=== PATIENT | male | born 1970 | race Caucasian/White ===

== ENCOUNTER 2016-06-01 18:16 | Emergency (ER) | payer BC ==
[2016-06-01] MEDS ORDERED: Amoxicillin/Clavulanate TAB* 875 MG PO ONE (21:35)
[2016-06-01] MEDS ORDERED: traMADol TAB* 50 MG PO ONE (21:36)
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
[2016-06-01 22:07] VITALS: BP 170/110
== END 2016-06-01 22:00 | disposition home or self-care (01) ==
LOC: UCEAST 18:16
DX: K04.7 Periapical abscess without sinus (principal); I10 Essential (primary) hypertension; F17.210 Nicotine dependence, cigarettes, uncomplicated; Z71.6 Tobacco abuse counseling
CPT/HCPCS: 99212; A9270-GY; G0463

== ENCOUNTER 2016-07-05 06:52 | Emergency (ER) | payer BC ==
[2016-07-05 07:51] VITALS: BP 144/98
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
== END 2016-07-05 07:51 | disposition home or self-care (01) ==
LOC: ED 06:52
DX: K02.9 Dental caries, unspecified (principal); R51 Headache; F17.210 Nicotine dependence, cigarettes, uncomplicated
CPT/HCPCS: 99282

== ENCOUNTER 2016-09-28 16:21 | Emergency (ER) | payer BC ==
[2016-09-28 16:40] VITALS: BP 144/103
[2016-09-28] MEDS ORDERED: Penicillin VK 500 MG TAB(NF) PO ONE (17:40)
--- NOTE | 2016-09-28 17:44 | UC ---
Navneet Borwn Alok, scribed for Josef Cho MD on 09/28/16 at 1743 . Dental HPI - HPI Summary HPI Summary: 46M presents to the [facility] for left upper dental pain/swelling. Pt states that he has an appointment in one month for his tooth decay but states that he may have aggravated his teeth while wrestling with his granddaughter earlier today. - History of Current Complaint Chief Complaint: UCDentalProblem Stated Complaint: TOOTH PAIN Time Seen by Provider: 09/28/16 17:34 Hx Obtained From: Patient Onset/Duration: Lasting Hours, Still Present Pain Intensity: 8 Pain Scale Used: 0-10 Numeric Aggravating: Nothing Alleviating: Nothing - Allergies/Home Medications Allergies/Adverse Reactions: Allergies Allergy/AdvReac Type Severity Reaction Status Date / Time No Known Allergies Allergy Verified 07/05/16 06:57 PMH/Surg Hx/FS Hx/Imm Hx - Surgical History Surgical History: None - Family History Known Family History: Negative: Hypertension - Social History Occupation: Employed Full-time Lives: With Family Alcohol Use: None Substance Use Type: None Smoking Status (MU): Heavy Every Day Tobacco Smoker Amount Used/How Often: 1/2 PPD Review of Systems Constitutional: Negative ENT: Dental Pain All Other Systems Reviewed And Are Negative: Yes Physical Exam Triage Information Reviewed: Yes Appearance: Well-Appearing, No Pain Distress Vital Signs: Initial Vital Signs Temp 98 F 09/28/16 16:38 Pulse 121 09/28/16 16:38 Resp 20 09/28/16 16:38 BP 144/103 09/28/16 16:38 Pulse Ox 100 09/28/16 16:38 Vital Signs Reviewed: Yes Eyes: Positive: Other: - EOMI, BRYAN ENT: Positive: Normal ENT inspection Dental: Positive: Other: - Extensive teeth decay. Left upper gingiva swollen. Swollen cheek. Neck: Positive: Supple, Nontender Respiratory: Positive: Lungs clear, Normal breath sounds Cardiovascular: Positive: RRR Abdomen Description: Positive: Nontender, Soft Bowel Sounds: Positive: Present Musculoskeletal Exam: Normal Musculoskeletal: Positive: Strength Intact, ROM Intact Neurological: Positive: Alert, Other: - Sensory/Motor intact Psychological: Positive: Other: - affect/mood appropriate Skin: Positive: Other - warm, dry, skin color reflects adequate perfusion Dental Complaint Course/Dx - Course Course Of Treatment: Patient medications reviewed this visit. RX PEN VK AND NORCO, F/U WITH DENTIST. - Differential Dx/Diagnosis Provider Diagnoses: DENTAL ABSCESS Discharge - Discharge Plan Condition: Stable Disposition: HOME Prescriptions: HYDROcodone/ACETAMIN 5-325 MG* [[place] 5-325 TAB*] 1 tab PO Q4H PRN #15 tab MDD 6 PRN Reason: Pain Penicillin VK 500 MG TAB(NF) [Penicillin VK 500 mg Tab] 500 mg PO QID #40 tab MDD 4 Patient Education Materials: Dental Abscess (ED) Referrals: No Primary Care Phys,NOPCP [Primary Care Provider] - Additional Instructions: FOLLOW UP WITH YOUR DENTIST. GET RECHECKED FOR ANY WORSENING OF YOUR CONDITION OR QUESTIONS OR CONCERNS. The documentation as recorded by the Navneet david Alok accurately reflects the service I personally performed and the decisions made by me, Josef Cho MD.
[2016-09-28] MEDS ORDERED: Penicillin VK LIQ* 250 MG/5 ML BTL PO ONE (17:48)
[2016-09-28] MEDS ORDERED: Penicillin VK TAB* 250 MG PO ONE (17:52)
== END 2016-09-28 18:01 | disposition home or self-care (01) ==
LOC: UCEAST 16:21
DX: K04.7 Periapical abscess without sinus (principal); Z72.0 Tobacco use
CPT/HCPCS: 99212; A9270-GY; G0463

== ENCOUNTER 2016-12-30 19:35 | Emergency (ER) | payer BC ==
[2016-12-30 19:52] VITALS: BP 154/83
--- NOTE | 2016-12-30 19:52 | UC ---
UC Dental HPI - HPI Summary HPI Summary: 46 YEAR OLD MALE PRESENTS WITH COMPLAINS OF RIGHT LOWER DENTAL JAW ABSCESS. - History of Current Complaint Chief Complaint: UCDentalProblem Stated Complaint: TOOTH PAIN Time Seen by Provider: 12/30/16 19:52 Hx Obtained From: Patient Onset/Duration: Sudden Onset Severity: Moderate Pain Scale Used: 0-10 Numeric - 5 - Allergies/Home Medications Allergies/Adverse Reactions: Allergies Allergy/AdvReac Type Severity Reaction Status Date / Time No Known Allergies Allergy Verified 12/30/16 19:52 Home Medications: Home Medications Naproxen Sodium-Diphenhydramin [Aleve PM 220-25 mg] 1 tab PO PRN 12/30/16 [ History] PMH/Surg Hx/FS Hx/Imm Hx Previously Healthy: Yes - Surgical History Surgical History: None - Family History Known Family History: Positive: Unknown Negative: Hypertension - Social History Alcohol Use: None Substance Use Type: None Smoking Status (MU): Heavy Every Day Tobacco Smoker Type: Cigarettes Amount Used/How Often: 3/4-1 ppd Length of Time of Smoking/Using Tobacco: since age 16 Have You Smoked in the Last Year: Yes Review of Systems Constitutional: Negative Skin: Negative Eyes: Negative ENT: Dental Pain Respiratory: Negative Cardiovascular: Negative Gastrointestinal: Negative Genitourinary: Negative Motor: Negative Neurovascular: Negative Musculoskeletal: Negative Neurological: Negative Psychological: Negative All Other Systems Reviewed And Are Negative: Yes Physical Exam Triage Information Reviewed: Yes Vital Signs: Initial Vital Signs Temp 36.9 C 12/30/16 19:48 Pulse 84 12/30/16 19:48 Resp 16 12/30/16 19:48 BP 154/83 12/30/16 19:48 Pulse Ox 99 12/30/16 19:48 Vital Signs Reviewed: Yes Eye Exam: Normal ENT Exam: Normal Dental: Positive: Abscess @ Neck exam: Normal Neck: Positive: 1 Respiratory Exam: Normal Cardiovascular Exam: Normal Abdominal Exam: Normal Musculoskeletal Exam: Normal Neurological Exam: Normal Psychological Exam: Normal Skin Exam: Normal Dental Complaint Course/Dx - Differential Dx/Diagnosis Provider Diagnoses: RIGHT LOWER JAW DENTAL ABSCESS Discharge - Discharge Plan Condition: Stable Disposition: HOME Prescriptions: Amoxicillin/Clavulanate TAB* [Augmentin TAB 875*] 875 mg PO BID #20 tab Chlorhexidine MOUTHWASH 0.12%* [Peridex Mouth Wash 0.12%*] 15 ml PO TID #480 ml Magic M W2 Michael/Maal/Nyst/Lido* 5 ml SWISH SPIT QID PRN #120 ml PRN Reason: Pain Methylprednisolone [Medrol Dosepak 4 MG*] 4 mg PO .SEE SEBASTIAN INSTRUCTION #21 tab Patient Education Materials: Dental Abscess (ED) Referrals: No Primary Care Phys,NOPCP [Primary Care Provider] -
== END 2016-12-30 20:06 | disposition home or self-care (01) ==
LOC: UCEAST 19:35
DX: K04.7 Periapical abscess without sinus (principal); F17.210 Nicotine dependence, cigarettes, uncomplicated
CPT/HCPCS: 99212; G0463

== ENCOUNTER 2017-01-22 07:14 | Emergency (ER) | payer BC ==
[2017-01-22 07:31] VITALS: BP 164/96
[2017-01-22] MEDS ORDERED: Penicillin VK TAB* 250 MG PO ONE (08:00)
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
== END 2017-01-22 08:09 | disposition home or self-care (01) ==
LOC: UCEAST 07:14
DX: S01.512A Laceration without foreign body of oral cavity, initial encounter (principal); K05.10 Chronic gingivitis, plaque induced; K02.9 Dental caries, unspecified; W50.0XXA Accidental hit or strike by another person, initial encounter; Y93.83 Activity, rough housing and horseplay; Y92.9 Unspecified place or not applicable
CPT/HCPCS: 99212; A9270-GY; G0463

== ENCOUNTER 2017-09-09 18:22 | Emergency (ER) | payer BC, OTHER ==
[2017-09-09 19:10] VITALS: BP 146/92
--- NOTE | 2017-09-09 19:49 | UC ---
Andrey Brown Rebecca, scribed for Chantal Crowder MD on 09/09/17 at 1930 . Dental HPI - HPI Summary HPI Summary: Pt is a 47 y/o M who presents to [facility] c/o upper left dental pain since yesterday. Pt reports he has had a dental abscess his entire life which became worse, painful since yesterday and swollen today. On triage, associated pain is severe ranked 8/10 and characterized as throbbing. Has been using Tylenol (2 every hour) and Aleve to treat pain without the use of any other OTC medications. Denies fever, chills, N/V, ear pain. Has had prior similar episodes of dental abscesses for which he was treated with Penicillin and was last on Abx "a while ago." Has never had history or addiction to opiate abuse. Does not currently have a dentist, though is planning on seeing one. Pt's medications reviewed this visit - History of Current Complaint Chief Complaint: UCDentalProblem Stated Complaint: TOOTH PAIN Time Seen by Provider: 09/09/17 19:24 Hx Obtained From: Patient Onset/Duration: Lasting Days - 2 days, Still Present Severity: Severe Pain Intensity: 8 Pain Scale Used: 0-10 Numeric Aggravating Factor(s): Nothing Alleviating Factor(s): Nothing - Allergies/Home Medications Allergies/Adverse Reactions: Allergies Allergy/AdvReac Type Severity Reaction Status Date / Time No Known Allergies Allergy Verified 09/09/17 19:11 PMH/Surg Hx/FS Hx/Imm Hx - Additional Past Medical History Additional PMH: NEGATIVE PMHx: COPD, Asthma, Ulcer Previously Healthy: Yes - Surgical History Surgical History: None - Family History Known Family History: Positive: Hypertension Negative: Cardiac Disease, Diabetes - Social History Occupation: Employed Full-time Lives: With Family Alcohol Use: None Substance Use Type: None Smoking Status (MU): Light Every Day Tobacco Smoker Type: Cigarettes Amount Used/How Often: 1/2 PPD Length of Time of Smoking/Using Tobacco: since age 16 Have You Smoked in the Last Year: Yes - Immunization History Most Recent Influenza Vaccination: none Review of Systems Constitutional: Negative Skin: Negative Eyes: Negative ENT: Dental Pain - Upper left Respiratory: Negative Cardiovascular: Negative Gastrointestinal: Negative Genitourinary: Negative Motor: Negative Neurovascular: Negative Musculoskeletal: Negative Neurological: Negative Psychological: Negative All Other Systems Reviewed And Are Negative: Yes - Comments Additional Review of Systems Comments: NEGATIVE: Fever, chills, N/V, ear pain Physical Exam - Summary Physical Exam Summary: Vital Signs Reviewed: Yes A+Ox3, no distress Eyes: Conjunctiva Clear ENT: Hearing grossly normal neck: supple Respiratory: Positive: No respiratory distress, No accessory muscle use Cardiovascular: skin color reflect adequate perfusion Musculoskeletal Exam: ARNETT x 4 without difficulty Neurological: Positive: Alert, ambulatory without difficulty Psychological: Positive: Normal Response To Family Skin: Positive: no rash, no ecchymosis Triage Information Reviewed: Yes Vital Signs: Initial Vital Signs Temp 98 F 09/09/17 19:04 Pulse 91 09/09/17 19:04 BP 146/92 09/09/17 19:04 Pulse Ox 98 09/09/17 19:04 Dental Complaint Course/Dx - Course Course Of Treatment: Patient medications reviewed this visit. Discharge - Sign-Out/Discharge Documenting (check all that apply): Discharge/Admit/Transfer - Discharge - Discharge Plan Condition: Stable Disposition: HOME Prescriptions: Acetaminop/Codeine 30 MG TAB* [Tylenol/Codeine 30 MG TAB*] 1 - 2 tab PO Q8H PRN #10 tab MDD 6 PRN Reason: Severe Pain Penicillin VK 500 MG TAB(NF) [Penicillin VK 500 mg Tab] 500 mg PO TID #30 tab Patient Education Materials: Dental Abscess (ED) Referrals: No Primary Care Phys,NOPCP [Primary Care Provider] - Additional Instructions: - Okay to alternate ibuprofen (Advil, Motrin) and Tylenol product (Tylenol or tylenol and codeine) every 3 hours for pain. Take with food. Do NOT take for more than 4-5 days -Swish and spit with warm salt water 3-4 times a day -Take anitbiotics as prescribed until gone -Stay well hydrated - frequent sips of cold fluids will be soothing to your throat (popsicles, jello, ice cream, ice water) If you develop swelling inside your mouth, difficulty with chewing or any other concerns it is recommended you go to the emergency department for futher management - contact the dentist that you are planning to see to have treatment of your teeth. - Billing Disposition and Condition Condition: STABLE Disposition: Home The documentation as recorded by the Andrey david Rebecca accurately reflects the service I personally performed and the decisions made by me, Chantal Crowder MD.
== END 2017-09-09 20:02 | disposition home or self-care (01) ==
LOC: UCEAST 18:22
DX: K08.89 Other specified disorders of teeth and supporting structures (principal); F17.210 Nicotine dependence, cigarettes, uncomplicated
CPT/HCPCS: 99212; G0463

== ENCOUNTER 2018-12-14 16:11 | Emergency (ER) | payer OTHER ==
[2018-12-14 17:03] VITALS: BP 156/96
--- NOTE | 2018-12-14 17:32 | UC ---
Lower Extremity/Ankle HPI - HPI Summary HPI Summary: WHILE HORSING AROUND WITH HIS GRANDDAUGHTER 2 DAYS AGO PATIENT TWISTED HIS RIGHT ANKLE. SUSTAINED AN EVERSION INJURY AND NOW HAS PAIN AND SWELLING MEDIALLY. - History of Current Complaint Chief Complaint: UCLowerExtremity Stated Complaint: FOOT INJURY Time Seen by Provider: 12/14/18 16:53 Hx Obtained From: Patient Onset/Duration: Sudden Onset, Lasting Days, Still Present Severity Initially: Moderate Severity Currently: Moderate Pain Intensity: 3 Pain Scale Used: 0-10 Numeric Aggravating Factor(s): Standing, Ambulation Alleviating Factor(s): Rest, Elevation Able to Bear Weight: Yes - Allergies/Home Medications Allergies/Adverse Reactions: Allergies Allergy/AdvReac Type Severity Reaction Status Date / Time No Known Allergies Allergy Verified 12/14/18 16:26 PMH/Surg Hx/FS Hx/Imm Hx Previously Healthy: Yes - Surgical History Surgical History: None - Family History Known Family History: Positive: Hypertension Negative: Cardiac Disease, Diabetes - Social History Alcohol Use: None Substance Use Type: None Smoking Status (MU): Light Every Day Tobacco Smoker Type: Cigarettes Amount Used/How Often: 1/2 PPD Length of Time of Smoking/Using Tobacco: since age 16 Have You Smoked in the Last Year: Yes - Immunization History Most Recent Influenza Vaccination: none Review of Systems All Other Systems Reviewed And Are Negative: Yes Constitutional: Positive: Negative Skin: Positive: Bruising Respiratory: Positive: Negative Cardiovascular: Positive: Negative Gastrointestinal: Positive: Negative Musculoskeletal: Positive: Arthralgia, Decreased ROM, Edema Physical Exam Triage Information Reviewed: Yes Appearance: Well-Appearing, No Pain Distress, Well-Nourished Vital Signs: Initial Vital Signs Temp 99.3 F 12/14/18 16:18 Pulse 112 12/14/18 16:18 Resp 16 12/14/18 16:18 BP 156/96 12/14/18 16:18 Pulse Ox 98 12/14/18 16:18 Vital Signs Reviewed: Yes Eyes: Positive: Conjunctiva Clear ENT: Positive: Hearing grossly normal Neck: Positive: Supple Respiratory: Positive: No respiratory distress, No accessory muscle use Cardiovascular: Positive: Pulses Normal Musculoskeletal: Positive: ROM Limited @ - RIGHT ANKLE, Edema @ - RIGHT ANKLE MEDIALLY, Other: - MILDLY TTP DIFFUSELY RIGHT MEDIAL ANKLE. NO FOCAL BONY TENDERNESS. ACHILLES INTACT Neurological: Positive: Alert Psychological: Positive: Age Appropriate Behavior Skin: Positive: Other - [place] RIGHT MEDIAL ANKLE. YELLOW, THICKENED TOENAILS Lower Extremity Course/Dx - Course Course Of Treatment: PATIENT DECLINES IMAGING TODAY. OFFERED JAMES WRAP AND GEL SPLINT WHICH HE ALSO DECLINED. STATES HE CAN WRAP IT AT HOME. PRESCRIPTION GIVEN FOR NAPROXEN AND NOTE FOR WORK PROVIDED. ADVISED TO REST, ICE, COMPRESS, ELEVATE. SEEK FOLLOW- UP IF NOT IMPROVING OVER THE NEXT 1-2 WEEKS. PT ALSO PROVIDED WITH PODIATRY CONTACT INFORMATION TO ADDRESS HIS CHRONIC TOENAIL ONYCHOMYCOSIS. - Differential Dx/Diagnosis Provider Diagnosis: Right ankle sprain Discharge ED - Sign-Out/Discharge Documenting (check all that apply): Patient Departure All imaging exams completed and their final reports reviewed: No Studies - Discharge Plan Condition: Stable Disposition: HOME Prescriptions: Naproxen [Naproxen 500 mg tab] 500 mg PO BID PRN #30 tablet PRN Reason: Pain Patient Education Materials: Ankle Sprain (ED) Forms: *Work Release Referrals: No Primary Care Phys,NOPCP [Primary Care Provider] - Additional Instructions: YOUR SYMPTOMS SHOULD IMPROVE SIGNIFICANTLY OVER THE NEXT 1-2 WEEKS. IF YOU DO NOT IMPROVE EXPECTED FOLLOW-UP WITH YOUR PCP OR ORTHO. YOU MAY BENEFIT FROM IMAGING AT THAT TIME. NAPROXEN NEEDED FOR DISCOMFORT. REST, ICE, COMPRESS, ELEVATE. JAMES WRAP NEEDED FOR SYMPTOM RELIEF. BE SURE TO GO THROUGH SLOW RANGE OF MOTION AND STRETCHING EXERCISES DAILY YOU ARE ABLE TO PREVENT STIFFENING UP AND MAKING THE DISCOMFORT WORSE. CALL THE NUMBER BELOW FOR ASSISTANCE IN ESTABLISHING WITH A PCP An additional resource available to assist in finding the appropriate physician for your health care needs is the [facility] ([facility]). You may contact them by calling [phone]. CALL PODIATRY TO SCHEDULE AN APPT TO ADDRESS YOUR TOENAIL CONDITION ( ONYCHOMYCOSIS) Dr. Nathalia Rowland [address] [place] [id number] [facility] [address] Demarco Gupta [address] [facility] [address] Donal Mckeon. [address] [place] [address] Please call his office at [phone] to make an appointment to be seen Dr. Gregory Andre. [address] [place] [address] - Billing Disposition and Condition Condition: STABLE Disposition: Home
== END 2018-12-14 17:31 | disposition home or self-care (01) ==
LOC: UCEAST 16:11
DX: S93.401A Sprain of unspecified ligament of right ankle, initial encounter (principal); X50.0XXA Overexertion from strenuous movement or load, initial encounter; Y93.83 Activity, rough housing and horseplay; Y92.9 Unspecified place or not applicable; F17.210 Nicotine dependence, cigarettes, uncomplicated
CPT/HCPCS: 99211; G0463